=== PATIENT | female | born 1990 | race African-American/Black ===

== ENCOUNTER 2019-04-23 19:46 | Emergency (ER) | payer OTHER ==
[~2019-04-23] VITALS: Ht 167.6 cm; Wt 136.1 kg
[~2019-04-23 19:46] MED LIST: AMOXICILLIN 50500 M1 PO; APAP500 PO; COLACE 100 MG100 MG PO; IBUPROFEN 800800 M1 PO; IROSPAN 24/6 T1 EACH PO; LANOLIN56 GM TOP; LOCOID 0.1% CRE15 GM TOP; MACROBID 100 M100 M1 PO; NORCO 10-325 T1 EACH PO; NORCO 5-325 TA1 EACH PO; PRENATAL; TUCKS MEDICATE1 EAC1 TOP
[2019-04-23 19:48] VITALS: BP 150/96
== END 2019-04-23 22:04 | disposition home or self-care (01) ==
LOC: ER 19:46
DX: J02.9 Acute pharyngitis, unspecified (principal); J30.2 Other seasonal allergic rhinitis